=== PATIENT | male | born 1965 | race Caucasian/White ===

== ENCOUNTER 2016-11-07 11:02 | Emergency (ER) | payer OTHER ==
[~2016-11-07] VITALS: Ht 172.7 cm; Wt 131.5 kg
[2016-11-07] MEDS ORDERED: CIPROFLOXACIN500 M1 PO ×2 (11:39→11:47)
[2016-11-07] MEDS ORDERED: FLAGYL500 MG PO ×2 (11:39→11:47)
[2016-11-07] MEDS ORDERED: NORCO 5-325 TA1 EACH PO ×2 (11:39→11:47)
[2016-11-07] MEDS ORDERED: COLACE100 MG PO (11:40)
[2016-11-07] MEDS ORDERED: FLOMAX0.4 MG PO (11:48)
[2016-11-07 11:57] VITALS: BP 142/74
== END 2016-11-07 11:58 | disposition home or self-care (01) ==
LOC: ER 11:02
DX: N41.9 Inflammatory disease of prostate, unspecified (principal); K62.89 Other specified diseases of anus and rectum; Z88.0 Allergy status to penicillin